=== PATIENT | male | born 1955 | race Caucasian/White ===

== ENCOUNTER 2018-09-29 19:30 | Emergency (ER) | payer MEDICARE, BC ==
[~2018-09-29] VITALS: Ht 172.7 cm; Wt 115.2 kg
--- NOTE | 2018-09-29 20:03 | PHYS DOC ---
Past History Past Medical History: Depression, Diabetes, GERD, High Cholesterol, Hypertension Past Surgical History: Appendectomy Additional Smoking Information: 2013 Alcohol Use: None Drug Use: Marijuana Adult General Chief Complaint Chief Complaint: SORE THROAT HPI HPI Patient is a 63 year old male who presents with complaint of sore throat. Patient states his symptoms have been present over the past 3 days. States that he has been having worsening pain along the right side of his neck under his jaw and states that he is noted swollen lumps in that area. He states that the pain extends along the side of his neck just behind the ear. Denies any known fevers, cough, sinus pressure, or ear pain. States that he has right- sided headache associated with the swelling. Has not taken any medications for his symptoms. States that he does have pain with swallowing. Review of Systems Review of Systems Constitutional: Denies fever or chills [] Eyes: Denies change in visual acuity, redness, or eye pain [] HENT: Sore throat, swollen glands in neck[] Respiratory: Denies cough or shortness of breath [] Cardiovascular: Denies chest pain or edema[] GI: Denies abdominal pain, nausea, vomiting, bloody stools or diarrhea [] : Denies dysuria or hematuria [] Musculoskeletal: Denies back pain or joint pain [] Integument: Denies rash or skin lesions [] Neurologic: Headache, denies focal weakness or sensory changes [] All other systems were reviewed and found to be within normal limits, except as documented in this note. Physical Exam Physical Exam Constitutional: Alert, afebrile, appears in [id number] discomfort. [] HENT: Normocephalic, atraumatic, bilateral external ears normal, oropharyngeal erythema, nose normal. [] Eyes: PERRLA, EOMI, conjunctiva normal, no discharge. [] Neck: Normal range of motion, tender right-sided anterior and posterior cervical lymphadenopathy, supple, no stridor. [] Cardiovascular: Tachycardia, regular rhythm, no murmur [] Lungs & Thorax: Bilateral breath sounds clear to auscultation [] Abdomen: Bowel sounds normal, soft, no tenderness, no masses, no pulsatile masses. [] Skin: Warm, dry, no erythema, no rash. [] Back: No tenderness, no CVA tenderness. [] Extremities: No tenderness, no cyanosis, no clubbing, ROM intact, no edema. [] Neurologic: Alert and oriented X 3, normal motor function, normal sensory function, no focal deficits noted. [] Current Patient Data Vital Signs Vital Signs Date Time Temp Pulse Resp B/P (MAP) Pulse Ox O2 Delivery O2 Flow Rate FiO2 09/29/18 19:30 99.5 122 22 95 Room Air Lab Results Laboratory Tests Test 09/29/18 19:50 Influenza Type A (Rapid) Negative Influenza Type B (Rapid) Negative Group A Streptococcus Rapid Negative Current Medications Medications (Trade) Dose Ordered Sig/Lorie Route PRN Reason Start Time Stop Time Status Last Admin Dose Admin Amoxicillin/ Clavulanate Potassium (Augmentin 875/ 125mg) 1 tab 1X ONCE PO 09/29/18 20:45 09/29/18 20:46 UNV EKG EKG Not performed[] Radiology/Procedures Radiology/Procedures Not performed[] Course & Med Decision Making Course & Med Decision Making Pertinent Labs and Imaging studies reviewed. (See chart for details) Patient's exam is consistent with lymphadenitis. Strep and flu tests were negative. The patient is in no acute distress at this time. Patient started on Augmentin for treatment. Recommended follow-up with primary doctor in 2-3 days for reevaluation. Advised return to emergency department for any worsening symptoms. Patient was understanding and in agreement with treatment plan.[] Dragon Disclaimer Dragon Disclaimer This electronic medical record was generated, in whole or in part, using a voice recognition dictation system. Departure Departure: Impression: Primary Impression: Cervical adenitis Disposition: 01 HOME, SELF-CARE Condition: STABLE Referrals: PCP,NO (PCP) Patient Instructions: Cervical Adenitis Additional Instructions: Follow-up with your primary doctor in the next 2-3 days for reevaluation. Return to the emergency department for any worsening symptoms. Scripts Amoxicillin/Potassium Clav (AUGMENTIN 875-125 TABLET) 1 Each Tablet 1 TAB PO BID, #20 TAB Prov: KAY SÁNCHEZ MD 09/29/18 KAY SÁNCHEZ MD Sep 29, 2018 20:03
[2018-09-29 20:31] LABS: INFLUENZA A PATIENT NEGATIVE (NEGATIVE); INFLUENZA B PATIENT NEGATIVE (NEGATIVE)
[2018-09-29] MEDS ORDERED: AMOXICILLIN/K CLAV 875/125MG TABLET. PO ONE (20:45)
[2018-09-29 20:48] VITALS: BP 122/77
[2018-09-29] MEDS ORDERED: AMOX1TAB61 PO (20:52)
== END 2018-09-29 21:10 | disposition home or self-care (01) ==
LOC: ER 19:30
DX: I88.9 Nonspecific lymphadenitis, unspecified (principal); E11.9 Type 2 diabetes mellitus without complications; K21.9 Gastro-esophageal reflux disease without esophagitis; E78.00 Pure hypercholesterolemia, unspecified; I10 Essential (primary) hypertension; Z87.891 Personal history of nicotine dependence
CPT/HCPCS: 87070; 87804; 87880; 99283